=== PATIENT | female | born 1975 | race Caucasian/White ===

== ENCOUNTER → 2023-08-29 14:07 | Outpatient (AMB) | payer MEDICARE, MEDICAID, SELFPAY ==
--- NOTE | 2023-08-29 14:13 | MHC.PC.OV ---
Intake Visit Reasons: r shoulder pain Allergies No Known Allergies Allergy (Unverified 02/04/20 16:11) Coding
--- NOTE | 2023-08-29 14:15 | AM.OFFWIN_ITS ---
Intake Vital Signs 08/29/23 14:21 Height 5 ft 3 in Weight 143 lb 2 oz BMI 25.4 BP 108/70 Blood Pressure Location Lt brachial Position Sitting Respiration 16 Pulse 80 Pulse Source Pulse Oximeter Temp 98.2 F Temp Source Oral Pulse Oximetry (%) 100 Oxygen Delivery Method Room Air Intake Visit Reasons: r shoulder pain Intake Note: Right shoulder pain Patient Tobacco Use Status: Current everyday Tobacco user Is last menstrual period known: Yes Last menstrual period: 08/13/23 Patient : No Allergies No Known Allergies Allergy (Verified 08/29/23 14:16) Medication List - Last Reconciled 08/29/23 by Lindsay Starr PA-C albuterol sulfate 90 mcg/actuation inhalation budesonide 180 mcg/actuation (Pulmicort Flexhaler) 2 inhalations inhalation BID buprenorphine ER (Brixadi Monthly) mg subcut gabapentin 800 mg PO TID hydroxyzine HCl 50 mg PO BID pramipexole 0.125 mg PO DAILY Do you need a note to return to daycare/school/sports/work: No HPI r shoulder pain HPI Details Pt is a 47 y/o female who presents today with complaints of right shoulder pain. She states that it started about 3 weeks ago. The pain is in the posterior right shoulder and lateral aspect. She states it feels like she tore something because she has a hard time lifting her arm. 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 She has never had issues with her shoulder before. She has been using heat and ibuprofen with minimal improvement. She does also feel like the muscles in her neck are spasming. She denies any numbness, tingling. She does report right arm weakness secondary to pain. 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 She does have a significant past medical history a cervical fusion. [facility] Medical History (Updated 08/29/23 @ 14:47 by Lindsay Starr PA-C) Trapezius muscle spasm Right shoulder pain Social History Patient Tobacco Use Status: Current everyday Tobacco user Patient : No Female Reproductive History Menstrual Date of last menstrual period: 08/13/23 Physical Exam Vital Signs: Last Vital Signs Temp 98.2 F 08/29/23 14:21 Pulse 80 08/29/23 14:21 Resp 16 08/29/23 14:21 BP 108/70 08/29/23 14:21 Pulse Ox 100 08/29/23 14:21 Oxygen Delivery Method Room Air 08/29/23 14:21 BMI result Body Mass Index 25.4 Const Orientation/consciousness: patient oriented x3 HEENT Ears: hearing grossly normal bilaterally Neck Neck: Yes full ROM, Yes tender (Tenderness to palpation along the cervical paraspinous muscles) and Yes other (Right trapezius muscle spasm noted) Thyroid: Thyroid normal Lymphatic: no lymphadenopathy noted Resp Auscultation: clear to auscultation bilaterally Cardio Rate: regular rate Rhythm: regular rhythm Heart sounds: S1 normal heart sound present and S2 normal heart sound present Skin General skin exam: no rashes or lesions noted Neuro General: patient oriented x3, gait normal and no focal motor deficits Extrem Other: Tenderness to palpation throughout the posterior right shoulder and in the right subacromial space. Range of motion is limited due to pain. Negative Speed's test. Empty can test does elicit discomfort. Elbow and wrists are nontender with full range of motion. DTRs intact. Radial pulse 2 +bilaterally. Cyber Software Engineer strength 5/5 bilaterally. Forearm strength 5/5 bilaterally. Sensation intact. Assessment & Plan Assessment & Plan (1) Right shoulder pain: Code(s): M25.511 - Pain in right shoulder Qualifiers: Chronicity: acute Qualified Code(s): M25.511 - Pain in right shoulder Plan: X-ray ordered. Advised to continue with heat. We did discuss gentle stretching and pendulum swings. We will start patient on diclofenac and cyclobenzaprine. Discussed risks and benefits and adverse effects of these medications including GI upset and drowsiness with the muscle relaxant. Referral to ortho placed. We did discuss benefits of physical therapy and she will let me know. Patient understands and agrees with this plan. (2) Trapezius muscle spasm: Code(s): M62.838 - Other muscle spasm Plan: See above. Orders: Orders XR shoulder RT min 2V Today M25.511 - Pain in right shoulder, M62.838 - Other muscle spasm Referrals Orthopedics Referral M25.511 - Pain in right shoulder Medications: New cyclobenzaprine 10 mg PO TID 10 days PRN 30 tabs 0RF muscle spasm diclofenac potassium 50 mg PO BID 30 days 60 tabs 0RF Coding Level of Care Code New Pt Level 3 (18345) Diagnoses Acute pain of right shoulder M25.511 Chronicity: acute Trapezius muscle spasm M62.838
[2023-08-29 14:21] VITALS: BP 108/70; PULSE 80; RESP 16; TEMP 36.8; O2SAT 100; BMI 25.4
== END ==
PROVIDERS: PCP Internal Medicine; Visit Provider Physician Assistant
DX: M25.511 Pain in right shoulder (principal); M62.838 Other muscle spasm
CPT/HCPCS: 99203

== ENCOUNTER 2023-09-09 14:06 | Outpatient (AMB) | payer MEDICARE, MEDICAID, SELFPAY ==
--- NOTE | 2023-09-09 14:32 | AM.OFFWIN_ITS ---
Intake Vital Signs 09/09/23 14:37 09/09/23 14:39 Height 5 ft 3 in Weight 143 lb 6 oz BMI 25.4 BP 144/88 H 146/86 H Blood Pressure Location Lt brachial Lt brachial Position Sitting Sitting Respiration 12 Pulse 80 Pulse Source Pulse Oximeter Temp 98.7 F Temp Source Oral Pulse Oximetry (%) 95 Oxygen Delivery Method Room Air Intake Visit Reasons: ongoing shoulder pain lump on chest Intake Note: Ongoing shoulder pain, requesting MRI.Pain in right side of neck. Lump on chest that is painful, noticed 5 days ago. Patient Tobacco Use Status: Current everyday Tobacco user Is last menstrual period known: No Allergies No Known Allergies Allergy (Verified 09/09/23 14:33) Medication List - Last Reconciled 09/09/23 by Lindsay Starr PA-C albuterol sulfate 90 mcg/actuation inhalation budesonide 180 mcg/actuation (Pulmicort Flexhaler) 2 inhalations inhalation BID buprenorphine ER (Brixadi Monthly) mg subcut cyclobenzaprine 10 mg PO TID PRN 10 days diclofenac potassium 50 mg PO BID 30 days gabapentin 800 mg PO TID hydroxyzine HCl 50 mg PO BID pramipexole 0.125 mg PO DAILY Do you need a note to return to daycare/school/sports/work: No HPI ongoing shoulder pain lump on chest HPI Details Pt is a 47 y/o female with a significant past medical history asthma, substance abuse, chronic neck and back pain and psoriasis who presents today with complaints of ongoing right shoulder pain. She was seen a week ago by myself and had an x-ray which was unremarkable. She was also referred to ortho but has not yet followed up. She he states that it has now been about a month of this severe pain and it seems like it is getting worse. She has had pain in her right shoulder and neck on and off for years but this last month has been the worst and most constant that it has been. The pain is in the posterior right shoulder and lateral aspect. She is concerned because she developed a lump in her right upper chest wall 2 days ago and she thinks that it could be related to her pectoralis muscle. She states it feels like she tore something because she has a hard time lifting her arm. She has never needed surgery on her shoulder before.. She has been using heat and ibuprofen with minimal improvement. She does also feel like the muscles in her neck are spasming. She denies any numbness, tingling. She does report right arm weakness secondary to pain. 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 She does have a significant past medical history a cervical fusion. She is not up-to-date on health maintenance. She has not been seen by her PCP in about a year so. She requests a refill on clobetasol cream today for her psoriasis. [facility] Medical History (Updated 09/09/23 @ 15:11 by Lindsay Starr PA-C) Psoriasis Trapezius muscle spasm Right shoulder pain Social History Patient Tobacco Use Status: Current everyday Tobacco user Physical Exam Vital Signs: Last Vital Signs Temp 98.7 F 09/09/23 14:37 Pulse 80 09/09/23 14:37 Resp 12 09/09/23 14:37 BP 146/86 H 09/09/23 14:39 Pulse Ox 95 09/09/23 14:37 Oxygen Delivery Method Room Air 09/09/23 14:37 BMI result Body Mass Index 25.4 Const Orientation/consciousness: patient oriented x3 HEENT Ears: hearing grossly normal bilaterally Neck Neck: Yes full ROM, Yes tender (Tenderness to palpation along the cervical paraspinous muscles) and Yes other (Right trapezius muscle spasm noted) Thyroid: Thyroid normal Lymphatic: no lymphadenopathy noted Chest Other: Tenderness to palpation over the right upper chest wall. There is some soft tis jordon swelling noted over the upper chest wall but no mass appreciated. Resp Auscultation: clear to auscultation bilaterally Cardio Rate: regular rate Rhythm: regular rhythm Heart sounds: S1 normal heart sound present and S2 normal heart sound present GI Inspection: Yes normal to inspection Palpation (GI): Soft to palpation and Other GI palpation findings present (nont hamida, no cva tenderness) Auscultation: normoactive bowel sounds Rectal Exam - Female: deferred Skin Other: Psoriatic like plaques noted on the upper back. General skin exam: no rashes or lesions noted Neuro General: patient oriented x3, gait normal and no focal motor deficits Extrem Other: Tenderness to palpation throughout the posterior right shoulder and in the right subacromial space. Range of motion is limited due to pain. Negative Speed's test. Empty can test does elicit discomfort. Elbow and wrists are nontender with full range of motion. DTRs intact. Radial pulse 2 +bilaterally. Feed Mixer strength 5/5 bilaterally. Forearm strength 5/5 bilaterally. Sensation intact. Assessment & Plan Assessment & Plan (1) Right shoulder pain: Code(s): M25.511 - Pain in right shoulder Qualifiers: Chronicity: acute Qualified Code(s): M25.511 - Pain in right shoulder Plan: Discussed with her that an MRI may not get covered but I did order this today. Phone number provided to orthopedics. Continue with the diclofenac and Flexeril as she does find this helpful. (2) Lump in chest: Code(s): R22.2 - Localized swelling, mass and lump, trunk Plan: Chest x-ray and ultrasound ordered. We will follow up pending test results. (3) Psoriasis: Code(s): L40.9 - Psoriasis, unspecified Plan: Clobetasol cream ordered. Plan Advised patient to follow-up with her PCP within 1-2 weeks. Sooner if needed. Patient understands and agrees with this plan. Orders: Orders XR chest 2V Today M25.511 - Pain in right shoulder, R22.2 - Localized swelling, mass and lump, trunk MR shoulder RT wo con Today M25.511 - Pain in right shoulder, M62.838 - Other muscle spasm, R22.2 - Localized swelling, mass and lump, trunk US chest Today R22.2 - Localized swelling, mass and lump, trunk Medications: New clobetasol 0.05% 1 appl topical BID 2 weeks 60 grams 0RF Coding Level of Care Code Est Pt Level 4 (54278) Diagnoses Acute pain of right shoulder M25.511 Chronicity: acute Lump in chest R22.2 Psoriasis L40.9
[2023-09-09 14:37] VITALS: BP 144/88; PULSE 80; RESP 12; TEMP 37.1; O2SAT 95; BMI 25.4
[2023-09-09 14:39] VITALS: BP 146/86
== END 2023-09-09 15:06 | disposition home or self-care (01) ==
PROVIDERS: PCP Internal Medicine; Visit Provider Physician Assistant
DX: M25.511 Pain in right shoulder (principal); R22.2 Localized swelling, mass and lump, trunk; L40.9 Psoriasis, unspecified
CPT/HCPCS: 99214

== ENCOUNTER 2023-09-30 14:05 | Outpatient (REF) | payer MEDICARE, SELFPAY ==
--- NOTE | ~2023-09-30 | US_ITS ---
EXAMINATION: US CHEST CLINICAL INFORMATION: Right upper anterior chest wall palpable lump. COMPARISON: None available. TECHNIQUE: Using a linear array transducer with grayscale and color modalities, ultrasound examination is performed of the right chest wall. FINDINGS: The cutaneous, subcutaneous, muscular and fascial planes are unremarkable. No mass or fluid collection is seen. There is no foreign body. US/US chest IMPRESSION: Unremarkable examination.
== END 2023-09-30 14:06 | disposition home or self-care (01) ==
LOC: HO.US 14:05
PROVIDERS: PCP Internal Medicine; Visit Provider Physician Assistant
DX: R22.2 Localized swelling, mass and lump, trunk (principal)
CPT/HCPCS: 76604

== ENCOUNTER 2023-10-03 12:38 | Outpatient (REF) | payer MEDICARE, SELFPAY ==
[2023-10-03 14:40] LABS: MANUAL DIFF FLAG NO
[2023-10-03 14:50] LABS: Basophils Absolute Auto 0.1 X10*3/uL (0.0-0.2); Basophils Percent Auto 0.8 % (0-2); Eosinophils Absolute Auto 0.3 X10*3/uL (0.0-0.4); Eosinophils Percent Auto 4.5 % (0-4); Hematocrit 32.8 % (37.0-47.0); Hemoglobin 10.9 g/dl (12.0-16.0); Imm Gran Abs Auto 0.01 X10*3/uL (0.00-0.03); Imm Gran Pct Auto 0.2 % (0.0-0.4); Lymphocytes Absolute Auto 1.9 X10*3/uL (1.2-4.9); Lymphocytes Percent Auto 30.8 % (20-40); Mean Corpuscular HGB Conc 33.2 g/dl (31.0-35.0); Mean Corpuscular Hemoglobin 30.2 pg (27.0-33.0); Mean Corpuscular Volume 90.9 fL (80.0-98.0); Mean Platelet Volume 9.7 fL (9.4-12.3); Monocytes Absolute Auto 0.5 X10*3/uL (0.1-1.2); Monocytes Percent Auto 8.8 % (2-11); Neutrophils Absolute Auto 3.4 x10*3/uL (2.0-8.3); Neutrophils Percent Auto 54.9 % (45-73); Platelet Count 365 X10*3/uL (160-400); Red Blood Count 3.61 X10*6/uL (4.20-5.50); Red Cell Distribution Width 14.6 % (11.0-16.0); White Blood Count 6.2 X10*3/uL (4.8-10.8)
[2023-10-03 15:01] LABS: Rheumatoid Factor 17.4 IU/mL (<15.0)
[2023-10-03 15:25] LABS: Alanine Aminotransferase 8 U/L (0-31); Albumin Level 3.8 g/dL (3.5-5.0); Alkaline Phosphatase 95 U/L (39-117); Anion Gap 14 (12-20); Aspartate Amino Transferase 15 U/L (5-31); Bilirubin Total 0.2 mg/dL (0.0-1.0); Blood Urea Nitrogen 7 mg/dL (9-16); Calcium 9.3 mg/dL (8.4-10.2); Carbon Dioxide 25 mmol/L (22-29); Chloride 103 mmol/L (96-108); Estimated Glomerular Filt Rate > 60; Glucose Random 124 mg/dL (60-115); Potassium 3.2 mmol/L (3.3-5.1); Sodium 139 mmol/L (135-145); Total Protein 7.5 g/dL (6.5-8.0)
[2023-10-03 15:31] LABS: Erythrocyte Sedimentation Rate 34 MM/HR (0-20)
[2023-10-04 12:42] LABS: Lyme Blot 0.95 index
[2023-10-08 11:49] LABS: 18 KD (IgG) Band NON-REACTIVE; 23 KD (IgG) Band NON-REACTIVE; 23 KD (IgM) Band NON-REACTIVE; 28 KD (IgG) Band NON-REACTIVE; 30 KD (IgG) Band NON-REACTIVE; 39 KD (IgM) Band NON-REACTIVE; 39KD (IgG) Band NON-REACTIVE; 41 KD (IgM) Band NON-REACTIVE; 41KD (IgG) Band REACTIVE; 45 KD (IgG) Band NON-REACTIVE; 58 KD (IgG) Band NON-REACTIVE; 66 KD (IgG) Band NON-REACTIVE; 93 KD (IgG) Band NON-REACTIVE; Lyme Abs Screen EQUIVOCAL; Lyme IgG Blot Interp NEGATIVE (NEGATIVE); Lyme IgM Blot Interp NEGATIVE (NEGATIVE)
[2023-10-08 16:04] LABS: A. Phagocytophilum Ab IgG <1:64 (<1:64); A. Phagocytophilum Ab IgM <1:20 (<1:20); E. Chaffeensis Ab IgG <1:64 (<1:64); E. Chaffeensis Ab IgM <1:20 (<1:20)
[2023-10-08 16:43] LABS: Babesia IgG <1:64 titer (<1:64); Babesia IgM <1:20 titer (<1:20)
== END 2023-10-03 12:39 | disposition home or self-care (01) ==
LOC: HO.WFDLDS 12:38
PROVIDERS: Visit Provider Internal Medicine
DX: M79.89 Other specified soft tissue disorders (principal); M25.511 Pain in right shoulder; R50.9 Fever, unspecified
CPT/HCPCS: 36415; 80053; 85025; 85652; 86431; 86617; 86618; 86666; 86753

== ENCOUNTER 2023-10-25 10:14 | Outpatient (AMB) | payer MEDICARE, SELFPAY ==
--- NOTE | 2023-10-25 10:10 | MHC.PC.OV ---
Vital Signs 10/25/23 10:23 10/25/23 10:56 Height 5 ft 3 in Weight 141 lb 4 oz BMI 25.0 BP 140/98 H 140/92 H Blood Pressure Location Rt brachial Rt brachial Position Sitting Sitting Respiration 14 Pulse 84 Pulse Source Pulse Oximeter Temp 98.1 F Temp Source Oral Pulse Oximetry (%) 97 Oxygen Delivery Method Room Air Intake Visit Reasons: follow up xray Intake Note: New patient visit. We did not get imaging from [facility], sent request. Patient is concerned about lyme. Allergies No Known Allergies Allergy (Verified 10/25/23 10:21) Tobacco use date assessed: 10/25/23 Dental Screening Dental Screen Date: 10/25/23 Did you have a dental visit in the last 12 months?: Yes Did you have a dental problem in the last 6 months where you did not have access to dental care?: No Was dental information given to patient?: Patient has dentist [facility] Medical History (Updated 10/25/23 @ 12:08 by Delphine Guardado CMA) Depression Anxiety Headache IBS (irritable bowel syndrome) Arthritis HTN (hypertension) Asthma Psoriasis Trapezius muscle spasm Right shoulder pain Family History (Updated 10/25/23 @ 12:10 by Delphine Guardado CMA) Maternal Grandmother HTN (hypertension) Cardiovascular disease Paternal Grandmother Alcoholism Social History Housing: Apartment Patient Tobacco Use Status: Current everyday Tobacco user Cigarette Packs Per Day: 0.5 Years Smoked: 15 e-Cigarette/Vaping Use: Never Used Second Hand Smoke Exposure: No service: No Current occupational status: unemployed Cognitive needs: No Hearing needs: No Vision needs: No Questionnaire Thrive Questionnaire Date Thrive assessed: 10/25/23 I am a: Patient What is your living situation today?: I have a steady place to live Within the past 12 months, did the food you bought not last and you didn't have the money to get more?: Never true Within the past 12 months, did you worry whether your food would run out before you got money to buy more?: Never true Do you have trouble paying for medicines?: No Do you have trouble getting transportation to medical appointments?: No Do you have trouble paying your heating and electricity bill?: No Do you have trouble taking care of your child, family member or friend?: No Do you have trouble with day-to-day activities such as bathing, preparing meals, shopping, managing finances, etc.?: No Are you currently unemployed and looking for a job?: No Are you interested in more education?: No Please select the resources that you would like help with: None Currently or been in a relationship where the following occur: no concerns reported THRIVE Score: 0 AUDIT C Alcohol Use Questionnaire (AUDIT-C) 1. How often do you have a drink containing alcohol?: Never 3. How often do you have six or more drinks on one occasion?: Never Total Score: 0 LOWELL-7 AMB Questionnaire LOWELL-7 Date LOWELL - 7 assessed: 10/25/23 Feeling nervous, anxious, or on edge: 1 = Several days Not being able to stop or control worryin = More than half the days Worrying too much about different things: 2 = More than half the days Trouble relaxin = Not at all Being so restless that it is hard to sit still: 2 = More than half the days Becoming easily annoyed or irritable: 2 = More than half the days Feeling afraid as if something awful might happen: 0 = Not at all Total LOWELL-7 score (0-4 normal; 5-9 mild; 10-14 moderate; 15-21 severe): 9 Source: Developed by Drs. Anthony Boo, Meme Turner, Daljit Worthy and colleagues, with an educational john from [employer]. LOWELL-7 Assessment Billing LOWELL-7 Assessment Tool: LOWELL-7 Assessment 14580 Physical exam (Primary Care) Vital Signs: Last Vital Signs Temp 98.1 F 10/25/23 10:23 Pulse 84 10/25/23 10:23 Resp 14 10/25/23 10:23 BP 140/92 H 10/25/23 10:56 Pulse Ox 97 10/25/23 10:23 Oxygen Delivery Method Room Air 10/25/23 10:23 BMI result Body Mass Index 25.0 Tobacco/Smoking Status: Tobacco use Status Tobacco use date assessed 10/25/23 10/25/23 10:26 Patient Tobacco Use Status Current everyday Tobacco 10/25/23 10:10 e-Cigarette/Vaping Use Never Used 10/25/23 10:26 Thrive Assessment: Date of Thrive Assessment Date Thrive assessed 06/07/24 06/07/24 12:11 Currently or been in a relationship where the following occur: no concerns reported Assessment and Plan Assessment & Plan Orders: Orders Hemoglobin A1c 10/25/23 M25.50 - Pain in unspecified joint, R70.0 - Elevated erythrocyte sedimentation rate, R73.09 - Other abnormal glucose IRON PROFILE 10/25/23 M25.50 - Pain in unspecified joint, R70.0 - Elevated erythrocyte sedimentation rate, R73.09 - Other abnormal glucose Lyme IgG/IgM w/reflex to WB 10/25/23 M25.50 - Pain in unspecified joint, R70.0 - Elevated erythrocyte sedimentation rate, R73.09 - Other abnormal glucose ALDAIR Reflex Titer and Pattern 10/25/23 M25.50 - Pain in unspecified joint, R70.0 - Elevated erythrocyte sedimentation rate, R73.09 - Other abnormal glucose, R76.8 - Other specified abnormal immunological findings in serum Referrals Rheumatology Referral M25.50 - Pain in unspecified joint, R70.0 - Elevated erythrocyte sedimentation rate, R76.8 - Other specified abnormal immunological findings in serum Medications: New levofloxacin 750 mg PO DAILY 5 tabs 0RF 5 days prednisone 40 mg (2 x 20 mg) PO DAILY 10 tabs 0RF 5 days tramadol 50 mg PO Q8H PRN 21 tabs 0RF pain 7 days Changed From gabapentin 800 mg PO TID To gabapentin 800 mg PO TID 270 tabs 3RF 90 days Coding Level of Care Code Est Pt Level 4 (89634) Additional Codes LOWELL-7 Assessment Billing - LOWELL-7 Assessment Tool: LOWELL-7 Assessment 41161 ([id number])
[2023-10-25 10:23] VITALS: BP 140/98; PULSE 84; RESP 14; TEMP 36.7; O2SAT 97; BMI 25.0
[2023-10-25 10:56] VITALS: BP 140/92
== END 2023-10-25 13:08 | disposition home or self-care (01) ==
PROVIDERS: PCP Internal Medicine; Visit Provider Internal Medicine
DX: M48.02 Spinal stenosis, cervical region (principal); M54.2 Cervicalgia; M25.50 Pain in unspecified joint
CPT/HCPCS: 99214

== ENCOUNTER 2023-10-25 11:29 | Outpatient (REF) | payer MEDICARE, SELFPAY ==
[2023-10-25 14:48] LABS: Estimated Average Glucose 111 mg/dL; Hemoglobin A1c % 5.5 % (<6.0)
[2023-10-25 14:53] LABS: Iron 75 mcg/dL (30-160); Percent Iron Saturation 25 % (15-50); Total Iron Binding Capacity 303 mcg/dL (228-428); Unsaturated Iron Binding 228 ug/dL
[2023-10-27 15:13] LABS: Anti Nuclear Antibody Screen NEGATIVE (NEGATIVE)
[2023-10-28 21:54] LABS: Lyme Abs Screen <0.90 index
== END 2023-10-25 11:30 | disposition home or self-care (01) ==
LOC: HO.WFDLDS 11:29
PROVIDERS: Visit Provider Internal Medicine
DX: M25.50 Pain in unspecified joint (principal); R70.0 Elevated erythrocyte sedimentation rate; R73.09 Other abnormal glucose; R76.8 Other specified abnormal immunological findings in serum
CPT/HCPCS: 36415; 83036; 83540; 86038; 86617; 86618

== ENCOUNTER 2023-11-05 11:51 | Outpatient (AMB) | payer MEDICARE, SELFPAY ==
--- NOTE | 2023-11-05 11:57 | A.OFFPC_ITS ---
Vital Signs 11/05/23 11:58 Height 5 ft 3 in Weight 143 lb 8 oz BMI 25.4 BP 112/68 Blood Pressure Location Lt brachial Position Sitting Pulse 84 Pulse Source Pulse Oximeter Temp 98.9 F Temp Source Oral Pulse Oximetry (%) 95 Oxygen Delivery Method Room Air Intake Visit Reasons: Finger locking / Hand pain Intake Note: Bilateral hand pain and finger locking. Body stiffness, legs numb and stiff in the morning. Allergies No Known Allergies Allergy (Verified 11/05/23 11:57) Tobacco use date assessed: 10/25/23 Dental Screening Dental Screen Date: 10/25/23 HPI HPI Comments History of Present Illness Details The patient is a 47 year old female with a past medical history of neck pain, neck surgery, +RF, presenting for follow up She has had increasing pain in the right neck, shoulder and arm. Her neck MRI from [facility] was finally obtained -this shows evidence of prior fusion C4-C5; osteophyte complex, mild central stenosis C5-C6 with moderate to severe right neural foraminal narrowing; osteophyte complex with central/right paracentral protrusion, prominence of the ligamentum flavum, moderate central setnosis, right grater than left with severe right and moderate left neural foraminal narrowing. She notes the tramadol previously prescribed did help From 09/08 note She has had pain in her right shoulder and neck on and off for years but this last month has been the worst and most constant that it has been. The pain is in the posterior right shoulder and lateral aspect. She is concerned because she developed a lump in her right upper chest wall 2 days ago and she thinks that it could be related to her pectoralis muscle. She states it feels like she tore something because she has a hard time lifting her arm. She has never needed surgery on her shoulder before.. She has been using heat and ibuprofen with minimal improvement. She does also feel like the muscles in her neck are spasming. She denies any numbness, tingling. She does report right arm weakness secondary to pain. 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 She does have a significant past medical history a cervical fusion She was seen 10/25/23 at which time the lump on her chest wall appeared large and warm. She completed a course of levofloxacin. The lump has reduced in size since She has a pending appt to rheumatology for sept She was referred to orthopedics for the shoulder [facility] Medical History (Updated 11/05/23 @ 12:13 by Daniela Dow MD) Depression Anxiety Headache IBS (irritable bowel syndrome) Arthritis HTN (hypertension) Asthma Psoriasis Trapezius muscle spasm Right shoulder pain Family History (Updated 10/25/23 @ 12:10 by Delphine Guardado CMA) Maternal Grandmother HTN (hypertension) Cardiovascular disease Paternal Grandmother Alcoholism Social History Housing: Apartment Patient Tobacco Use Status: Current everyday Tobacco user Cigarette Packs Per Day: 0.5 Years Smoked: 15 e-Cigarette/Vaping Use: Never Used Second Hand Smoke Exposure: No service: No Current occupational status: unemployed Cognitive needs: No Hearing needs: No Vision needs: No Questionnaire Thrive Questionnaire Date Thrive assessed: 10/25/23 LOWELL-7 AMB Questionnaire LOWELL-7 Date LOWELL - 7 assessed: 10/25/23 Source: Developed by Drs. Anthony Boo, Meme Turner, Daljit Worthy and colleagues, with an educational john from [employer]. Review of Systems Const Details: see HPI Physical exam (Primary Care) Vital Signs: Last Vital Signs Temp 98.9 F 11/05/23 11:58 Pulse 84 11/05/23 11:58 BP 112/68 11/05/23 11:58 Pulse Ox 95 11/05/23 11:58 Oxygen Delivery Method Room Air 11/05/23 11:58 BMI result Body Mass Index 25.4 Tobacco/Smoking Status: Tobacco use Status Tobacco use date assessed 10/25/23 11/05/23 12:00 Patient Tobacco Use Status Current everyday Tobacco 11/05/23 12:00 e-Cigarette/Vaping Use Never Used 11/05/23 12:00 Thrive Assessment: Date of Thrive Assessment Date Thrive assessed 10/25/23 11/05/23 12:00 Const Other: PHYSICAL EXAM: GENERAL: Alert and oriented x 3. NAD EYES: EOMI. Anicteric. HENT: Moist mucous membranes. No scleral icterus. Chronic torticollis/neck spasm MSK: Residual right chest lump. Tenderness to palpation t/o the shoulder. Range of motion is limited due to pain. Negative Speed's test. Empty can test +pain. Elbow and wrists are nontender with full range of motion. Hypertrophy of hand/finger joints with some flexure. DTRs intact. Palpable radial pulse LUNGS: Clear to auscultation bilaterally. CARDIOVASCULAR: Regular rate and rhythm. ABDOMEN: Soft, non-tender +bs EXTREMITIES: No edema. Non-tender. SKIN: No rashes or lesions. Warm. NEUROLOGIC: No focal neurological deficits. CN II-XII grossly intact PSYCHIATRIC: Cooperative. Appropriate mood and affect Assessment and Plan Assessment & Plan (1) Cervical stenosis of spinal canal: Code(s): M48.02 - Spinal stenosis, cervical region Plan: Referral to NS for evaluation (2) Neck pain: Code(s): M54.2 - Cervicalgia Plan: Tramadol refilled May continue gabapentin, prn flexeril (3) Polyarthralgia: Code(s): M25.50 - Pain in unspecified joint Plan: Pending rheumatology consult In interim she can use three day course of prednisone sparingly as needed for any flares in hand pain Orders: Referrals Neuro Spine Referral M48.02 - Spinal stenosis, cervical region, M54.2 - Cervicalgia Medications: Changed From prednisone 40 mg (2 x 20 mg) PO DAILY 5 days 10 tabs 0RF To prednisone 40 mg (2 x 20 mg) PO DAILY 3 days PRN 6 tabs 3RF pain flare From tramadol 50 mg PO Q8H 7 days PRN 21 tabs 0RF pain To tramadol 50 mg PO Q8H 28 days PRN 84 tabs 0RF pain Coding Level of Care Code Tele Est Pt Level 4 (91431) Complex EM visit Add On G2211 Diagnoses Cervical stenosis of spinal canal M48.02 Neck pain M54.2 Polyarthralgia M25.50
[2023-11-05 11:58] VITALS: BP 112/68; PULSE 84; TEMP 37.2; O2SAT 95; BMI 25.4
== END 2023-11-05 12:26 | disposition home or self-care (01) ==
PROVIDERS: PCP Internal Medicine; Visit Provider Internal Medicine
DX: M48.02 Spinal stenosis, cervical region (principal); M54.2 Cervicalgia; M25.50 Pain in unspecified joint
CPT/HCPCS: 99214; G2211

== ENCOUNTER 2024-03-26 14:55 | Outpatient (AMB) | payer MEDICARE, MEDICAID, SELFPAY ==
[2024-03-26 14:59] VITALS: BP 118/76; PULSE 66; O2SAT 96; BMI 22.8
--- NOTE | 2024-03-26 14:59 | MHC.OFFVIS ---
Vital Signs 03/26/24 14:59 Height 5 ft 3 in Weight 128 lb 11.999 oz BMI 22.8 BP 118/76 Blood Pressure Location Lt brachial Position Sitting Pulse 66 Pulse Source Pulse Oximeter Pulse Oximetry (%) 96 Oxygen Delivery Method Room Air Intake Visit Reasons: abnormal lab/MBF unable to LM Intake Note: Patient is here as a new patient, internally referred by Dr. Low from [facility] for Abnormal labs. Patient states she has swollen hands that go numb and hurt, and her ankles, too, it hurts to walk at times. She is taking Tramadol for the pain. Accompanied by: Mother Allergies No Known Allergies Allergy (Verified 03/26/24 15:04) Medication List - Last Reconciled 03/26/24 by Ines Mares MD albuterol sulfate 90 mcg/actuation inhalation budesonide 180 mcg/actuation (Pulmicort Flexhaler) 2 inhalations inhalation BID buprenorphine ER (Brixadi Monthly) mg subcut clobetasol 0.05% 1 appl topical BID 2 weeks cyclobenzaprine 10 mg PO TID PRN 10 days diclofenac potassium 50 mg PO BID gabapentin 800 mg PO TID 90 days hydroxyzine HCl 50 mg PO BID levofloxacin 750 mg PO DAILY 5 days pramipexole 0.125 mg PO DAILY prednisone 40 mg (2 x 20 mg) PO DAILY PRN 3 days tramadol 50 mg PO Q8H 28 days HPI Comments Details: Patient is a 48-year-old female current everyday smoker with history of substance use disorder (heroin - inhaled), 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 Patient states that for the past 1 year has been having pain in her hands, wrists, shoulders and feet. This is associated with swelling and stiffness the stiffness would last for about 30-40 minutes. The swelling would occur in the morning and in the evening but would be worse at the end of the day especially worse after a day of strenuous activity. 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 Was given 40 mg of prednisone in the past which improved some of her pain but did not resolve her pain completely. Grandfather with rheumatoid arthritis, mother with osteoarthritis [facility] Medical History (Updated 11/13/23 @ 09:49 by Daniela Low MD) Depression Anxiety Headache IBS (irritable bowel syndrome) Arthritis HTN (hypertension) Asthma Psoriasis Trapezius muscle spasm Right shoulder pain Family History (Updated 10/25/23 @ 12:10 by Delphine Guardado CMA) Maternal Grandmother HTN (hypertension) Cardiovascular disease Paternal Grandmother Alcoholism Social History Housing: Apartment Patient Tobacco Use Status: Current everyday Tobacco user Cigarette Packs Per Day: 0.5 Years Smoked: 15 e-Cigarette/Vaping Use: Never Used Second Hand Smoke Exposure: No service: No Current occupational status: unemployed Cognitive needs: No Hearing needs: No Vision needs: No Review of Systems Const Details: Review of Systems Constitutional: Denies fever, chills, weight loss ENT: Denies vision changes, eye pain or eye redness, dental caries, dry mouth GI: Denies nausea, vomiting, diarrhea, abdominal pain, change in BM Pulm: Denies SOB, GARCIA, hemoptysis, wheezing Cards: Denies chest pain, palpitations Skin: Denies Raynaud's, rash, nail changes, photosensitivity, GROUNDWATER CONSULTANT: Denies headaches, weakness, paresthesias, recurrent falls MSK: as per HPI All other systems reviewed and are unremarkable except noted above Physical Exam Vital Signs: BMI result Body Mass Index 22.8 Physical Examination CONSTITUITIONAL Patient alert and cooperative. Well appearing and in no apparent painful distress. Patient has smelled smoke and was slightly disheveled holding her neck in a rigid position. HEENT Conjunctiva and sclera clear. No lymphadenopathy. CHEST/RESPIRATORY SYSTEM Normal respiratory effort and able to speak in complete sentences. ?Clear to auscultation bilaterally. ?No crackles, rales, rhonchi, wheezes heard. CARDIAC SYSTEM Regular rate and rhythm. ?S1 and S2 heard no murmurs. ?Radial pulses intact bilaterally MSK Hands: ?Good applied psychology teacher strength bilaterally - 5/5. ?Widespread Heberden's nodes noted and squaring of the 1st CMC. Positive CMC grind test. No obvious swelling but tenderness to palpation of her 1st, 2nd and 3rd MCPs. ? Wrists: ?Full range of motion at the wrists without pain. ?No tenderness to palpation or synovitis noted to the wrists. Elbows: Full range of motion without pain. No tenderness, weakness, swelling, increased warmth or erythema. Shoulders: Limited range of motion of the left shoulder secondary to pain as well as the right shoulder.. Knees: ?Full range of motion. ?No tenderness, swelling, increased warmth or erythema.?No effusion or crepitations Ankles: Full range of motion. ?No tenderness, swelling, increased warmth or erythema.? Feet: ?Negative squeeze test. ?No tenderness to palpation or swelling of the MTPs. SKIN Skin intact without rashes. No psoriatic patches noted. Results Reviewed Results Reviewed: Laboratory Tests 10/03/23 10/25/23 12:40 11:31 WBC 6.2 RBC 3.61 L Hgb 10.9 L Hct 32.8 L Plt Count 365 ESR 34 H Sodium 139 Potassium 3.2 L Chloride 103 Carbon Dioxide 25 BUN 7 L Creatinine 0.70 Rheumatoid Factor 17.4 H ALDAIR Screen NEGATIVE Assessment & Plan Assessment & Plan (1) Polyarthralgia: Code(s): M25.50 - Pain in unspecified joint Category: Medical Plan: #Polyarthralgia At this time exam is not conclusive for inflammatory arthritis. Her exam is more giving osteoarthritis. She is at a very young age to have osteoarthritis but with a strong family history including her mom it is not surprising that she would also have osteoarthritis. We will check labs as well as x-rays. Start Celebrex 200 mg twice a day. Stop prednisone and ibuprofen as well as diclofenac. (2) Rheumatoid factor positive: Code(s): R76.8 - Other specified abnormal immunological findings in serum Category: Medical Plan: #Positive RF There is a closely between rheumatoid factor and rheumatoid arthritis however an elevated rheumatoid factor can indicate a number of conditions including infections such as tuberculosis or syphilis, viral infections such as hepatitis C, HIV, cancers, sarcoidosis, cirrhosis and some kidney diseases. At this time we will evaluate patient for CCP which is a specific antibody for rheumatoid arthritis. We will also check inflammatory markers and other investigations. We will also check x-rays Plan I spent 45 minutes reviewing the record and labs, seeing the patient, discussing the treatment plan and documenting in the medical record ? Orders: Orders Cyclic Citrullinated Peptide Today M25.50 - Pain in unspecified joint, R76.8 - Other specified abnormal immunological findings in serum Complete Blood Count Auto Diff Today M25.50 - Pain in unspecified joint, R76.8 - Other specified abnormal immunological findings in serum Comprehensive Met. Panel Today M25.50 - Pain in unspecified joint, R76.8 - Other specified abnormal immunological findings in serum C Reactive Protein Today M25.50 - Pain in unspecified joint, R76.8 - Other specified abnormal immunological findings in serum Syphilis Screen Today M25.50 - Pain in unspecified joint XR hand wrist LT Today M25.50 - Pain in unspecified joint, R76.8 - Other specified abnormal immunological findings in serum XR hand wrist RT Today M25.50 - Pain in unspecified joint, R76.8 - Other specified abnormal immunological findings in serum XR foot RT min 3V Today M25.50 - Pain in unspecified joint, R76.8 - Other specified abnormal immunological findings in serum XR foot LT min 3V Today M25.50 - Pain in unspecified joint, R76.8 - Other specified abnormal immunological findings in serum Rheumatoid Factor Today M25.50 - Pain in unspecified joint, R76.8 - Other specified abnormal immunological findings in serum Erythrocyte Sedimentation Rate Today M25.50 - Pain in unspecified joint, R76.8 - Other specified abnormal immunological findings in serum Hepatitis A,B,C Profile Today M25.50 - Pain in unspecified joint Hepatitis C Viral Load Today M25.50 - Pain in unspecified joint Hepatitis B Viral DNA Qn Today M25.50 - Pain in unspecified joint HIV Ab/Ag Today M25.50 - Pain in unspecified joint Medications: New celecoxib (Celebrex) 200 mg PO BID 180 caps 1RF M25.50 - Pain in unspecified joint Discontinued levofloxacin Discontinued Reason: Doctor's Order 750 mg PO DAILY 5 days 5 tabs 0RF diclofenac potassium Discontinued Reason: Doctor's Order 50 mg PO BID 60 tabs 5RF prednisone Discontinued Reason: Doctor's Order 40 mg (2 x 20 mg) PO DAILY 3 days PRN 6 tabs 3RF pain flare Coding Level of Care Code New Pt Level 4 (35040) Diagnoses Polyarthralgia M25.50 Rheumatoid factor positive R76.8
== END 2024-03-26 15:33 | disposition home or self-care (01) ==
PROVIDERS: PCP Internal Medicine; Visit Provider Student in an Organized Health Care Education/Training Program
DX: M25.50 Pain in unspecified joint (principal); R76.8 Other specified abnormal immunological findings in serum
CPT/HCPCS: 99204

== ENCOUNTER → 2024-03-26 14:55 | Outpatient (BNVA) | payer MEDICARE, SELFPAY | PROVIDERS: PCP Internal Medicine; Visit Provider Student in an Organized Health Care Education/Training Program | DX: M25.50 Pain in unspecified joint (principal); R76.8 Other specified abnormal immunological findings in serum | CPT/HCPCS: 99202 ==

== ENCOUNTER 2024-05-22 14:09 | Outpatient (AMB) | payer MEDICARE, MEDICAID, SELFPAY ==
--- NOTE | 2024-05-22 14:34 | MHC.PC.OV ---
Vital Signs 05/22/24 14:36 Height 5 ft 3 in Weight 128 lb 2 oz BMI 22.7 BP 138/88 Blood Pressure Location Rt brachial Position Sitting Pulse 57 Pulse Source Pulse Oximeter Pulse Oximetry (%) 99 Oxygen Delivery Method Room Air Intake Visit Reasons: F/U med review Intake Note: Medication follow up Freezer Laboratory Technician Required: No Allergies No Known Allergies Allergy (Verified 05/22/24 14:34) Tobacco use date assessed: 10/25/23 Dental Screening Dental Screen Date: 10/25/23 HPI HPI Comments History of Present Illness Details The patient is a 47 year old female with a past medical history of neck pain, neck surgery, +RF, presenting for follow up MSK: neck shoulder, bilateral hand pain-R>L. Did not tolerate celebrex. Using ibuprofen, flexeril, tramadol-requests increased dose of latter. No history of seizure. Using as directed. She has had increasing pain in the right neck, shoulder and arm. Her neck MRI from [facility] was finally obtained -this shows evidence of prior fusion C4-C5; osteophyte complex, mild central stenosis C5-C6 with moderate to severe right neural foraminal narrowing; osteophyte complex with central/right paracentral protrusion, prominence of the ligamentum flavum, moderate central setnosis, right grater than left with severe right and moderate left neural foraminal narrowing. Seeing rheumatology & orthopedics ROS see HPI PHYSICAL EXAM: GENERAL: Alert and oriented x 3. NAD EYES: EOMI. Anicteric. HENT: Moist mucous membranes. No scleral icterus. Torticollis LUNGS: Clear to auscultation bilaterally. CARDIOVASCULAR: Regular rate and rhythm. No murmur. No JVD. ABDOMEN: Soft, non-tender +bs EXTREMITIES: No edema. Non-tender. SKIN: No rashes or lesions. Warm. NEUROLOGIC: No focal neurological deficits. CN II-XII grossly intact PSYCHIATRIC: Cooperative. Appropriate mood and affect [facility] Medical History Depression Anxiety Headache IBS (irritable bowel syndrome) Arthritis HTN (hypertension) Asthma Psoriasis Trapezius muscle spasm Right shoulder pain Family History Maternal Grandmother HTN (hypertension) Cardiovascular disease Paternal Grandmother Alcoholism Social History Housing: Apartment Patient Tobacco Use Status: Current everyday Tobacco user Cigarette Packs Per Day: 0.5 Years Smoked: 15 e-Cigarette/Vaping Use: Never Used Second Hand Smoke Exposure: No service: No Current occupational status: unemployed Cognitive needs: No Hearing needs: No Vision needs: No Questionnaire Thrive Questionnaire Date Thrive assessed: 10/25/23 LOWELL-7 AMB Questionnaire LOWELL-7 Date LOWELL - 7 assessed: 10/25/23 Source: Developed by Drs. Anthony Boo, Meme Turner, Daljit Worthy and colleagues, with an educational john from [employer]. Physical exam (Primary Care) Vital Signs: Last Vital Signs Pulse 57 05/22/24 14:36 BP 138/88 05/22/24 14:36 Pulse Ox 99 05/22/24 14:36 Oxygen Delivery Method Room Air 05/22/24 14:36 BMI result Body Mass Index 22.7 Tobacco/Smoking Status: Tobacco use Status Tobacco use date assessed 10/25/23 05/22/24 14:37 Patient Tobacco Use Status Current everyday Tobacco 05/22/24 14:37 e-Cigarette/Vaping Use Never Used 05/22/24 14:37 Thrive Assessment: Date of Thrive Assessment Date Thrive assessed 10/25/23 05/22/24 14:37 Coding Level of Care Code Est Pt Level 4 (38107) Diagnoses Polyarthralgia M25.50 Assessment & Plan Assessment & Plan (1) Polyarthralgia: Code(s): M25.50 - Pain in unspecified joint Category: Medical Plan: Increase tramadol. continue flexeril, ibuprofen. Make rheumatology follow up (she was having insurance issues) Follow up 3 months Medications: New ibuprofen 600 mg PO Q6H PRN 540 tabs 3RF pain Changed From tramadol 50 mg PO Q8H 28 days 84 tabs 0RF To tramadol ok with prescribed cyclobenzaprine 100 mg (2 x 50 mg) PO Q8H 28 days 168 tabs 0RF Refilled tramadol 50 mg PO Q8H 28 days 84 tabs 0RF
[2024-05-22 14:36] VITALS: BP 138/88; PULSE 57; O2SAT 99; BMI 22.7
== END 2024-05-22 15:04 | disposition home or self-care (01) ==
LOC: HO.HMCFM 14:09
PROVIDERS: PCP Internal Medicine; Visit Provider Internal Medicine
DX: M25.50 Pain in unspecified joint (principal)

== ENCOUNTER → 2024-05-22 14:09 | Outpatient (BNVA) | payer MEDICARE, MEDICAID, SELFPAY | PROVIDERS: PCP Internal Medicine; Visit Provider Internal Medicine | DX: M25.50 Pain in unspecified joint (principal); Z79.891 Long term (current) use of opiate analgesic | CPT/HCPCS: 99212 ==

== ENCOUNTER 2024-06-26 11:34 | Outpatient (REF) | payer MEDICARE, MEDICAID, SELFPAY ==
--- OUTSIDE RECORDS SUMMARY | 2024-06-26 14:37 | XMS_ITS | Clinical Summary ---
Author Organization [facility] Address [address] [place] [address] Care Team Providers Care Vending Mechanic Name Role Phone Unavailable Primary Care Provider Unavailabl e Source Comments PLEASE NOTE, if this patient is a minor, it may be UNLAWFUL to discuss sensitive information that is contained in these records (such as FAMILY PLANNING, MENTAL HEALTH or SUBSTANCE ABUSE) with the minor patient's parent or other person without the patient's specific authorization.[facility] Social History Tobacco Use Types Packs/Day Years Used Date Smoking Tobacco: Never Assessed Social Connections Answer Date Recorded Connectedness 0 01/31/2024 Financial Resource Strain Answer Date R ecorded Financial Resource Strain 0 2021 Stress Answer Date Recorded Stress 0 02/20/2022 Physical Activity Answer Date Recorded Physical Activity 0 02/20/2022 Food Insecurity Answer Date Recorded Food 0 02/13/2024 Transportation Needs Answer Date Record ed Transportation 0 02/20/2022 Housing Stability Answer Date Recorded Housing 0 02/20/2022 Safety and Environment Answer Date Romeo rded Safety 0 02/20/2022 Utilities Answer Date Recorded Utilities 0 02/20/2022 Employment Answer Date Recorded Stress 0 01/31/2024 Comments Unknown Sex and Gender Information Value Date Recorded Sex Assigned at Not on file Legal Sex Female 7:43 AM PDT Gender Identity Not on file Sexual Orientation Not on file Plan of Treatment Health Maintenance Due Date Last Done Comments Diabetes Screening 1977 HPV Screening 1977 Hepatitis C Screening 1977 Lipid Screening 1977 Pap + HPV 1977 Tobacco Screening 1977 HIV Screening 1992 Relationship Safety Screening/Counseling 1992 Hypertension Screening (#1) 11/07/1995 Imm-DTaP/Tdap/Td (1 - Tdap) 1996 Imm-Hepatitis B (1 of 3 - 19+ 3-dose series) 7 Cervical Cancer Screening 1998 Pap Smear 1998 Breast Cancer Screening (Mammogram) 2017 CT Colonography 2022 Colonoscopy 2022 Colorectal Cancer Screening 2022 FIT/gFOBT 2022 Fecal DNA 2022 Flexible Sigmoidoscopy 2022 [id number] ( season) 2024 Imm-Influenza (#1) 2024 Alcohol and Drug Screen 05/20/2024 Depression Annual Screen 05/20/2024 Cervical Ablation/Cold-Knife Conization Discontinued Cervical Cryotherapy Discontinued Colposcopy Discontinued Endometrial Biopsy Discontinued Excision/Leep Discontinued HPV Genotyping Discontinued Vaginal Pap Discontinued Vulvoscopy Discontinued [place]
--- OUTSIDE RECORDS SUMMARY | 2024-06-26 14:37 | XMS_ITS | Encounter Summary ---
Author Organization [employer] Address [address] [facility] [address] [place] [address] Care Team Providers Care Hospital Coder Name Role Phone Kayley Dan Primary Care Provider [phone] Marialuisareta Audrey Unavailable Unavailable Reason for Visit * Reason Comments Med Refill Encounter Details Date Type Department Care Team (Late st Contact Info) Description 06/26/2022 Refill Leisa [facility] MEDICAL [address] [place] [address] Lety Clancy MD [address] [place] [address] Chronic low back pain with left-sided sciatica, unspecified back pain laterality Social History Tobacco Use Types Packs/Day Years Used Date Smoking Tobacco: Never Assessed Comments Unknown Sex and Gender Information Value Date Recorded Sex Assigned at Female 05/16/2022 10:28 AM EST Legal Sex Female 8:36 PM EDT Gender Identity Female 05/16/2022 10:28 AM EST Sexual Orientation Choose not to disclose 2022 10:58 AM EST documented as of this encounter Miscellaneous Notes * Telephone Encounter - CRYSTAL Mccauley - 06/27/2022 9:06 AM EST Needs appointment documented in this encounter Plan of Treatment Not on file documented as of this encounter Visit Diagnoses Diagnosis Chronic low back pain with left-sided sciatica, unspecified back pain laterality documented in this encounter Care Teams Hospital Coder Relationship Specialty Start Date End Date Kayley Dan FNP [address] [facility] [place] [address] PCP - General Family Medicine 06/27/22 Audrey Perez Health Navigator 11/04/23 documented as of this encounter
--- OUTSIDE RECORDS SUMMARY | 2024-06-26 14:37 | XMS_ITS | Encounter Summary ---
Author Organization [employer] Address [address] [place] [address] Care Team Providers Care Electronic Tester Name Role Phone Kayley Dan Primary Care Provider [phone] Audrey Perez Unavailable Unavailable Encounter Details Date Type Department Care Team (Latest Contact Info) Description 10/20/2021 Abstract [facility] CONVERSIONS Dental, Provider, DDS Social History Tobacco Use Types Packs/Day Years Used Date Smoking Tobacco: Never Assessed Comments Unknown Sex and Gender Information Value Date Recorded Sex Assigned at Female 05/16/2022 10:28 AM EST Legal Sex Female 8:36 PM EDT Gender Identity Female 05/16/2022 10:28 AM EST Sexual Orientation Choose not to disclose 2022 10:58 AM EST documented as of this encounter Plan of Treatment Not on file documented as of this encounter Visit Diagnoses Not on filedocumented in this encounter Care Teams Electronic Tester Relationship Specialty Start Date End Date Kayley Dan FNP [address] [place] [address] PCP - General Family Medicine 06/27/22 Audrey Perez Health Navigator 11/04/23 documented as of this encounter
--- OUTSIDE RECORDS SUMMARY | 2024-06-26 14:37 | XMS_ITS | Encounter Summary ---
Author Organization [employer] Address [address] [facility] [address] [address] [place] [address] Care Team Providers Care Astronomy Teacher Name Role Phone Kayley Dan [facility] Primary Care Provider [phone] Marialuisareta Audrey Unavailable Unavailable Reason for Visit * Reason Comments Med Refill Encounter Details Date Type Department Care Team (Late st Contact Info) Description 11/28/2022 Refill [facility] MEDICAL [address] [place] [address] Kayley Dan FNP [address] [place] [address] Chronic low back pain with left-sided sciatica, unspecified back pain laterality; Mild persistent asthma, unspecified whether complicated Social History Tobacco Use Types Packs/Day Years [...] encounter Miscellaneous Notes * Telephone Encounter - Adriana Greenwood - 12/19/2022 10:08 AM EDT LMOM for patient to CB and schedule appt. Will send letter next. * Telephone Encounter - Adriana Greenwood - 12/12/2022 9:53 AM EDT LMOM for patient to call back and schedule appt. * Telephone Encounter - Cinthia Freedman - 12/06/2022 2:33 PM EDT Per provider should have scheduled appointment * Telephone Encounter - Cinthia Freedman - 12/06/2022 1:09 PM EDT Pharmacy requests [facility] Last fill Date: 10/23/22 Last OV: 08/28/22 Next OV: nothing scheduled Last UTOX: due CSA Date: due DNF Date: documented in this encounter Plan of Treatment Not on file documented as of this encounter Visit Diagnoses Diagnosis Chronic low back pain with left-sided sciatica, unspecified back pain laterality Mild persistent asthma, unspecified whether complicated documented in this encounter Care Teams Astronomy Teacher Relationship Specialty Start Date End Date Kayley Dan FNP [address] [place] [id number] PCP - General Family Medicine 06/27/22 Audrey Perez Health Navigator 11/04/23 documented as of this encounter
--- OUTSIDE RECORDS SUMMARY | 2024-06-26 14:37 | XMS_ITS | Clinical Summary ---
Author Organization [employer] Address [address] [place] [address] Care Team Providers Care Ore Washer Name Role Phone Kayley Dan [facility] Primary Care Provider [phone] Audrey Perez Unavailable Unavailable Allergies No known active allergies Medications aspirin 81 MG EC tablet daily. Active hydrOXYzine HCl (Atarax) 50 MG tablet TAKE 1 TABLET BY MOUTH EVERY DAY AT BEDTIME NEEDED for 90 Active omeprazole (PriLOSEC) [address] capsule Take 40 mg by mouth in the morning. 2 Active acetaminophen (Tylenol) 325 MG tablet 2 tablets in the morning and 2 tablets at noon and 2 tablets in the evening and 2 tablets before bedtime. PRN. Active Docusate Sodium (DSS) 100 MG capsule 1 capsule in the morning and 1 capsule in the evening. PRN. 6 Active Pulmicort Flexhaler 180 MCG/ACT inhalerIndicatio ns:Mild persistent asthma, unspecified whether complicated Inhale 1 puff in the morning and at bedtime. 1 each 1 2 Active lisinopril 10 MG tabletIndication s:Essential hypertension Take 1 tablet (10 mg) by mouth in the morning for 180 doses. 90 tablet 1 3 Active gabapentin (Neurontin) 800 MG tabletIndication s:Chronic low back pain with left-sided sciatica, unspecified back pain laterality TAKE 1 TABLET BY MOUTH 3 TIMES DAILY. 30 tablet 3 Active Buprenorphine HCl-Naloxone HCl (Suboxone) 8-2 MG SL film TAKE 1 FILM SUBLINGUALLY , TWICE DAILY FOR 28 DAYS 3 Active albuterol (Ventolin HFA) 108 (90 Base) MCG/ACT inhalerIndicatio ns:Mild persistent asthma, unspecified whether complicated TAKE 2 PUFFS BY MOUTH EVERY 4 HOURS NEEDED 18 g 1 4 Active Active Problems Problem Noted Date Diagnosed Date Asthma 05/15/2022 Depression with anxiety 05/15/2022 Generalized anxiety disorder 05/15/2022 PTSD (post-traumatic stress disorder) 05/15/2022 Essential hypertension 05/15/2022 GERD (gastroesophageal reflux disease) Hepatitis C 05/15/2022 Injury of left vertebral artery 05/15/2022 Leukocytosis 05/15/2022 Lumbago with sciatica, left side 05/15/2022 Lumbago with sciatica, right side 05/15/2022 Lumbar disc herniation 05/15/2022 Major depressive disorder, r ecurrent severe without psychotic features 05/15/2022 Opioid dependence in remission 05/15/2022 Non dependent drug abuse 05/15/2022 Substance abuse in remission 05/15/2022 Uncomplicated opioid abuse 05/15/2022 Encounters Date Type Department Care Team Description 05/08/2024 Refill [facility] [address] [place] [id number] Kayley Dan FNP Mild persistent asthma, unspecified whether complicated 03/27/2024 Refill [facility] [address] [place] [address] Kayley Dan FNP Mild persistent asthma, unspecified whether complicated from Last 3 Months Immunizations Name Administration Dates Next Due Hep A / Hep B 05/21/2019 Influenza Injectable Quadriv alant Preservative Free IIV4 MDCK 03/22/2021 Influenza, IIV3, injectable 06/14/2017,1 ,03/07/2015,03/17,03/13/2012 Pneumococcal Polysaccharide PPSV23 04/09/2001 TD (adult), 2 Lf tetanus tox oid, preservative free, adsorbed 05/03/2000 Tdap 03/13/2012 Family History Medical History Relation Name Comments domestic violence Other psychiatric disorders Other Relation Name Status Comments Father Mother Alive Other Social History Tobacco Use Types Packs/Day Years Used Date Smoking Tobacco: Every Day Cigarettes Tobacco Cessation:Ready to Q uit: Not Asked; Counseling Given: Not Answered Comments Unknown Sex and Gender Information Value Date Recorded Sex Assigned at Female 05/16/2022 10:28 AM EST Legal Sex Female 8:36 PM EDT Gender Identity Female 05/16/2022 10:28 AM EST Sexual Orientation Choose not to disclose 2022 10:58 AM EST Last Filed Vital Signs Vital Sign Reading Time Taken Comments Blood Pressure 108/60 08/28/2022 4:22 PM EDT Pulse 85 08/28/2022 4:22 PM EDT Temperature 36.3 ??C (97.3 ??F) 08/28/2022 4:22 PM ED T Respiratory Rate 16 08/28/2022 4:22 PM EDT Oxygen Saturation - - Inhaled Oxygen Concentration - - Weight 78.6 kg (173 lb 3.2 oz) 08/28/2022 4:22 P M EDT Height 160 cm (5' 3 ) 11/08/2021 3:00 PM EDT Body Mass Index 30.68 11/08/2021 3:00 PM EDT Plan of Treatment Health Maintenance Due Date Last Done Comments CT Colonography 1977 Colonoscopy 1977 Colorectal Cancer Screening 1977 Depression Screening 1977 FIT DNA/Cologuard 1977 FIT 1977 FOBT 1977 HIV Screening 1977 Lipid Panel 1977 SDOH Screening 1977 Sigmoidoscopy 1977 Alcohol/Substance Use Screening 1989 Family Planning (PISQ) 1992 Pap Smear 1998 Pneumococcal Vaccine: Pediatrics (0 to 5 Years) and At-Risk Patients (6 to 49) Years) (2 of 2 - PCV) 04/09/2002 04/09/2001 Cervical Cancer Screening 11/07/2007 HPV/Cotest 11/07/2007 Dental Prophylaxis 03/21/2009 09/17/2008, 0 12/27/2004, 06/27/2004, Additional history exists Mammogram 2017 Hepatitis A Vaccines (2 of 3 - Hep A Twinrix risk 3-dose series) 06/18/2019 05/21/2019 Hepatitis B Vaccines (2 of 3 - Hep B Twinrix 3-dose series) 06/18/2019 05/21/2019 DTaP/Tdap/Td Vaccines (2 - Td or Tdap) 03/13/2022 03/13/2012, 05/03/2000 Dental Oral Exam 04/22/2022 10/20/2021, , 12/27/2004, Additional history exists Dental X-Ray: Bitewings 10/21/2022 10/21/19 22, 09/09/2008, 06/27/2004, Additional history exists Tobacco Screening 11/30/2023 11/29/2022 COVID-19 Vaccine ( - season) 2024 Influenza Vaccine (#1) 2024 , 06/14/2017, 03/01/2016, Additional history exists Dental X-Ray: Full Mouth 10/21/2024 10/20/2021 Zoster Vaccines (1 of 2) 11/07/2027 RSV Patients and Patients Aged 60 years or older (1 - 1-dose 75+ series) 2052 HIB Vaccines Aged Out No longer eligi ble based on patient's age to complete this topic HPV Vaccines Aged Out No longer eligi ble based on patient's age to complete this topic IPV Vaccines Aged Out No longer eligi ble based on patient's age to complete this topic Meningococcal Vaccine Aged Out No farnaz fozia eligible based on patient's age to complete this topic RSV under 20 months Aged Out No longe r eligible based on patient's age to complete this topic Rotavirus Vaccines Aged Out No longer eligible based on patient's age to complete this topic Procedures Procedure Name Priority Date/Time Associated Diagnosis Comments DIAGNOSTIC - DIAGNOSTIC IMAGING - INTRAORAL - COMPREHENSIVE SERIES OF RADIOGRAPHIC IMAGES Routine 10/20/2021 12:00 AM EDT PERIODIC ORAL EVALUATION - ESTABLISHED PATIENT Routine 10/20/2021 12:00 AM EDT PROPHYLAXIS - ADULT Routine 09/17/2008 1 2:00 AM EDT from Last 3 Months or Most Recently Relevant to Health Maintenance Insurance MEDICARE [facility] STANDARD DENTAL-[facility] MEDICAID STAND ADULT Care Teams Ore Washer Relationship Specialty Start Date End Date Kayley Dan FNP [address] [place] [address] [place] [id number] PCP - General Family Medicine 06/27/22 Audrey Perez [facility] Navigator 11/04/23
[2024-06-26 14:46] LABS: Amphetamine Screen Urine Not Detected (Not Detect); Barbiturates, Urine Not Detected (Not Detect); Benzodiazepines Screen Urine Not Detected (Not Detect); Buprenorphine Scr Not Detected (Not Detect); Cannabinoid Screen Urine Not Detected (Not Detect); Cocaine Screen Urine Not Detected (Not Detect); Fentanyl, urine Not Detected (Not Detect); Methadone Screen, Urine Not Detected (Not Detect); Opiate Screen Urine Not Detected (Not Detect); Oxycodone Screen Urine Not Detected (Not Detect); Phencyclidine Screen Urine Not Detected (Not Detect)
== END 2024-06-26 11:35 | disposition home or self-care (01) ==
LOC: HO.LNP 11:34
PROVIDERS: PCP Internal Medicine; Visit Provider Nurse Practitioner Family
DX: F19.11 Other psychoactive substance abuse, in remission (principal); F17.210 Nicotine dependence, cigarettes, uncomplicated; Z79.891 Long term (current) use of opiate analgesic; Z28.21 Immunization not carried out because of patient refusal
CPT/HCPCS: 80307; 99212

== ENCOUNTER → 2024-06-26 11:34 | Outpatient (AMB) | END | disposition home or self-care (01) ==